=== PATIENT | female | born 1955 ===

== ENCOUNTER 2016-10-11 22:47 | Emergency (ER) | payer MEDICAID ==
[2016-10-11 22:47] VITALS: BMI 24.1
[2016-10-11 23:02] VITALS: BP 141/85; PULSE 94; RESP 16; TEMP 98; O2SAT 99
--- NOTE | 2016-10-11 23:58 | ED PDOC ---
HPI: Skin/Bite Injury Time Seen by Provider: 10/11/16 23:43 Chief Complaint (Nursing): Abnormal Skin Integrity Chief Complaint (Provider): painful lump upper back History Per: Patient History/Exam Limitations: no limitations Onset/Duration Of Symptoms: Days (3) Quality Of Symptoms: Painful Additional History Per: Patient Additional Complaint(s): 61 y/o female history of diabetes, hypertension, hyperlipidemia, depression presents with painful lump to right upper back x 3 days. Patient she has had "pimple" to the area x 1 month; was prescribed antibiotic cream by PMD. Patient states when she gets nervous she picks at her skin, admits to picking at pimple since then, yesterday noted pain and swelling to area. Denies fever, nausea/vomiting, drainage. Past Medical History Reviewed: Historical Data, Nursing Documentation, Vital Signs Vital Signs: Last Vital Signs Temp 98.0 F 10/11/16 22:59 Pulse 94 H 10/11/16 22:59 Resp 16 10/11/16 22:59 BP 141/85 10/11/16 22:59 Pulse Ox 99 10/12/16 00:11 - Medical History PMH: Anxiety, Asthma, Depression, Diabetes, Fractures (WRIST RT./CASTED), Gastritis, Gall Bladder Disease, HTN, Hypercholesterolemia, Migraine (IN PAST), Pneumonia (LONG AGO) Denies: Chronic Kidney Disease - Surgical History Surgical History: Cholecystectomy, Endoscopy - Family History Family History: States: Unknown Family Hx - Immunization History Hx Tetanus Toxoid Vaccination: No Hx Influenza Vaccination: No Hx Pneumococcal Vaccination: No - Home Medications Home Medications: Ambulatory Orders Medication Instructions Recorded Alprazolam [Xanax] 1 mg PO HS PRN 01/11/15 Aripiprazole [Abilify] 15 mg PO HS 01/11/15 Budesonide/Formoterol Fumarate 2 puff IH TID PRN 01/11/15 [Symbicort 80-4.5 Mcg Inhaler] Cholecalciferol (Vitamin D3) 1,000 unit PO DAILY 01/11/15 [Vitamin D3] DiphenhydrAMINE [Benadryl] 50 mg PO Q6H PRN 01/11/15 Glimepiride [Amaryl] 4 mg PO BID 01/11/15 Insulin Glargine,Hum.rec.anlog 70 unit SC HS 01/11/15 [Lantus] Pantoprazole Sodium [Protonix] 40 mg PO DAILY 01/11/15 Zolpidem Tartrate [Ambien] 10 mg PO HS 01/11/15 oxyCODONE [oxyCODONE Immediate 20 mg PO TID PRN 01/11/15 Release Tab] Insulin Aspart, Recombinant 30 unit SC TID 03/14/15 [Novolog] Albuterol 0.5% [Albuterol 0.5% 1 dose NEB Q6H PRN 05/02/16 Inhal Trina (2.5 mg/0.5 ml) UD] Albuterol HFA [Ventolin HFA 90 2 puff INH PRN PRN 05/02/16 mcg/actuation (8 g)] Cyanocobalamin [Vitamin B12 1000 1,000 mcg IM Q30D 05/02/16 mcg/ml Inj] Clindamycin [Cleocin] 300 mg PO QID #39 cap 10/12/16 Ibuprofen [Motrin Tab] 1 tab PO Q6 PRN #20 tab 10/12/16 - Allergies Allergies/Adverse Reactions: Allergies Allergy/AdvReac Type Severity Reaction Status Date / Time insulin lispro [From Humalog] Allergy Intermediate RASH Verified 05/02/16 10:41 Review of Systems ROS Statement: Except As Marked, All Systems Reviewed And Found Negative Musculoskeletal: Positive for: Back Pain (right upper) Physical Exam - Reviewed Nursing Documentation Reviewed: Yes Vital Signs Reviewed: Yes - Physical Exam Appears: Positive for: Well, Non-toxic, No Acute Distress Head Exam: Positive for: ATRAUMATIC, NORMAL INSPECTION, NORMOCEPHALIC Skin: Positive for: Rash ([id number] nonfluctuant mass noted right upper back/neck with central prurulent lesion; mild flucutance surrounding lesion. Tender to touch. No active drainage, surrounding erythema) Eye Exam: Positive for: Normal appearance Cardiovascular/Chest: Positive for: Regular Rate, Rhythm Respiratory: Positive for: Normal Breath Sounds Extremity: Positive for: Normal ROM Neurologic/Psych: Positive for: Alert, Oriented - ECG O2 Sat by Pulse Oximetry: 99 - Progress ED Course And Treament: percocet po, ibuprofen PO Verbal consent given by patient for I&D. Area cleaned with alcohol prep pad, anesthesized with 1% lidocaine. Incision made using #11 blade over pustule with + prurulent drainage (culture obtained) Wound packed, bandaged. Family educated on wound care, warm compresses, follow up 48 hours for packing removal. Rx clindamycin (dose given in ED), ibuprofen provided. Return to ED for fever, spreading redness, or other concerning symptoms. Disposition - Clinical Impression Clinical Impression: Abscess - Patient ED Disposition Is Patient to be Admitted: No Counseled Patient/Family Regarding: Diagnosis, Need For Followup, Rx Given - Disposition Disposition: Routine/Home Disposition Time: 00:48 Condition: IMPROVED Additional Instructions: Follow up in 48 hours for wound check. Take medication as directed. Apply warm compresses 3-5times daily. Return to ED sooner for fever, spreading redness, or other concerning symptoms. Prescriptions: Clindamycin [Cleocin] 300 mg PO QID #39 cap Ibuprofen [Motrin Tab] 1 tab PO Q6 PRN #20 tab PRN Reason: Pain, Moderate (4-7) Instructions: Abscess Incision and Drainage (ED) Print Language: GREENLANDIC
[2016-10-12] MEDS ORDERED: Oxycodone/Acetaminophen 5/325 mg Tab ONE (00:02)
[2016-10-12] MEDS ORDERED: Lidocaine 1% Inj (20ml) IJ STA (00:03)
[2016-10-12] MEDS ORDERED: Oxycodone/Acetaminophen 5/325 mg Tab PO ONE (00:04)
[2016-10-12] MEDS ORDERED: Lidocaine 1% Inj (20ml) ONE (00:06)
== END 2016-10-12 01:08 | disposition home or self-care (01) ==
LOC: EDBD → H.ER 22:47
DX: L02.91 Cutaneous abscess, unspecified (principal); E11.9 Type 2 diabetes mellitus without complications; E78.00 Pure hypercholesterolemia, unspecified; I10 Essential (primary) hypertension; F41.9 Anxiety disorder, unspecified; J45.909 Unspecified asthma, uncomplicated; Z79.4 Long term (current) use of insulin

== ENCOUNTER 2016-10-14 10:33 | Emergency (ER) | payer MEDICAID ==
[2016-10-14 10:36] VITALS: BP 141/72; PULSE 89; RESP 18; TEMP 97.6; O2SAT 97; BMI 23.8
--- NOTE | 2016-10-14 11:03 | ED PDOC ---
HPI: Wound Care - HPI Time Seen by Provider: 10/14/16 10:54 Chief Complaint (Nursing): Wound Check Chief Complaint (Provider): Wound Check History Per: Patient Exam Limitations: no limitations Onset/Duration Of Symptoms: Days Current Symptoms Are (Timing): Better Location Of Injury: Right: Back Quality Of Symptoms: Itching Severity: Mild Additional Complaint(s): Patient is a 61 year old female who presents to ED for wound check. Patient was evaluated in ED on 10/11 for an abscess, had an I&D performed and packing placed , instructed to return for follow up. Patient states she is taking her prescribed Clindamycin and Motrin, denies fever, significant pain or drainage. Past Medical History Reviewed: Historical Data, Nursing Documentation, Vital Signs Vital Signs: Last Vital Signs Temp 97.6 F 10/14/16 10:36 Pulse 89 10/14/16 10:36 Resp 18 10/14/16 10:36 BP 141/72 10/14/16 10:36 Pulse Ox 97 10/14/16 10:36 - Medical History PMH: Anxiety, Asthma, Depression, Diabetes, Fractures (WRIST RT./CASTED), Gastritis, Gall Bladder Disease, HTN, Hypercholesterolemia, Migraine (IN PAST), Pneumonia (LONG AGO) Denies: Chronic Kidney Disease - Surgical History Surgical History: Cholecystectomy, Endoscopy - Family History Family History: States: Unknown Family Hx - Living Arrangements Living Arrangements: With Family - Immunization History Hx Tetanus Toxoid Vaccination: No Hx Influenza Vaccination: No Hx Pneumococcal Vaccination: No - Home Medications Home Medications: Ambulatory Orders Medication Instructions Recorded Alprazolam [Xanax] 1 mg PO HS PRN 01/11/15 Aripiprazole [Abilify] 15 mg PO HS 01/11/15 Budesonide/Formoterol Fumarate 2 puff IH TID PRN 01/11/15 [Symbicort 80-4.5 Mcg Inhaler] Cholecalciferol (Vitamin D3) 1,000 unit PO DAILY 01/11/15 [Vitamin D3] DiphenhydrAMINE [Benadryl] 50 mg PO Q6H PRN 01/11/15 Glimepiride [Amaryl] 4 mg PO BID 01/11/15 Insulin Glargine,Hum.rec.anlog 70 unit SC HS 01/11/15 [Lantus] Pantoprazole Sodium [Protonix] 40 mg PO DAILY 01/11/15 Zolpidem Tartrate [Ambien] 10 mg PO HS 01/11/15 oxyCODONE [oxyCODONE Immediate 20 mg PO TID PRN 01/11/15 Release Tab] Insulin Aspart, Recombinant 30 unit SC TID 03/14/15 [Novolog] Albuterol 0.5% [Albuterol 0.5% 1 dose NEB Q6H PRN 05/02/16 Inhal Trina (2.5 mg/0.5 ml) UD] Albuterol HFA [Ventolin HFA 90 2 puff INH PRN PRN 05/02/16 mcg/actuation (8 g)] Cyanocobalamin [Vitamin B12 1000 1,000 mcg IM Q30D 05/02/16 mcg/ml Inj] Clindamycin [Cleocin] 300 mg PO QID #39 cap 10/12/16 Ibuprofen [Motrin Tab] 1 tab PO Q6 PRN #20 tab 10/12/16 - Allergies Allergies/Adverse Reactions: Allergies Allergy/AdvReac Type Severity Reaction Status Date / Time insulin lispro [From Humalog] Allergy Intermediate RASH Verified 05/02/16 10:41 Review of Systems Constitutional: Negative for: Fever, Chills Gastrointestinal: Negative for: Nausea, Vomiting Musculoskeletal: Negative for: Neck Pain, Back Pain Skin: Positive for: Other (Healing wound right upper back). Negative for: Rash Physical Exam - Reviewed Nursing Documentation Reviewed: Yes Vital Signs Reviewed: Yes - Physical Exam Appears: Positive for: Non-toxic, No Acute Distress Skin: Positive for: Normal Color, Warm Eye Exam: Positive for: Normal appearance Neck: Positive for: Normal Back: Positive for: Normal Inspection, Other (open owund to right upper back (- ) erythema (-) tenderness (-) drainage) Extremity: Positive for: Normal ROM Neurologic/Psych: Positive for: Alert, Oriented - ECG O2 Sat by Pulse Oximetry: 97 (RA) Pulse Ox Interpretation: Normal Medical Decision Making Medical Decision Making: Time: 1100 Initial impression: Wound check Initial plan: Packing removed, wound is clean and dry. Instructed patient to continue taking antibiotics. Scribe Attestation: Documented by Krystle Cervantes acting as a scribe for Natanael Rogel MD MD Scribe Attestation: All medical record entries made by the Scribe were at my direction and personally dictated by me. I have reviewed the chart and agree that the record accurately reflects my personal performance of the history, physical exam, medical decision making, and the department course for this patient. I have also personally directed, reviewed, and agree with the discharge instructions and disposition. Disposition - Clinical Impression Clinical Impression: Encounter for wound re-check, Abscess packing removal - Patient ED Disposition Is Patient to be Admitted: No Doctor Will See Patient In The: Office Counseled Patient/Family Regarding: Studies Performed, Diagnosis, Need For Followup - Disposition Referrals: [facility] [Outside] Disposition: Routine/Home Disposition Time: 11:12 Condition: GOOD Additional Instructions: Follow up with your PCP in 3 days. You do not have to return for wound recheck unless there is worsening. Finish antibiotics as instructed. Instructions: Abscess Follow-up (ED)
== END 2016-10-14 11:15 | disposition home or self-care (01) ==
LOC: EDBD → H.ER 10:33
DX: Z48.00 Encounter for change or removal of nonsurgical wound dressing (principal); E11.9 Type 2 diabetes mellitus without complications; E78.00 Pure hypercholesterolemia, unspecified; F41.9 Anxiety disorder, unspecified; I10 Essential (primary) hypertension; Z79.4 Long term (current) use of insulin

== ENCOUNTER 2017-07-15 09:12 | Emergency (ER) | payer MEDICAID ==
[2017-07-15 09:18] VITALS: BP 146/79; TEMP 98; O2SAT 98
[2017-07-15 09:19] VITALS: BMI 23.6
--- NOTE | 2017-07-15 09:33 | ED PDOC ---
HPI: Back Time Seen by Provider: 07/15/17 09:27 Chief Complaint (Nursing): Back Pain History Per: Patient Current Symptoms Are (Timing): Still Present Quality Of Discomfort: Aching Severity: Moderate Pain Scale Rating Of: 4 Previous Symptoms: Back Pain Associated Symptoms: None Exacerbating Factor(s): Movement Additional Complaint(s): Chronic right sided low back pain radiates to front of right thigh. Worse over past 2 days. No weakness or parasthesias. No trauma or heavy lifting. Has appt with pain specialist in 2 weeks. Past Medical History Vital Signs: Last Vital Signs Temp 98 F 07/15/17 09:18 Pulse 106 H 07/15/17 09:18 Resp BP 146/79 07/15/17 09:18 Pulse Ox 98 07/15/17 09:18 - Medical History PMH: Anxiety, Asthma, Back Problems, Depression, Diabetes, Fractures (WRIST RT./ CASTED), Gastritis, Gall Bladder Disease, HTN, Hypercholesterolemia, Migraine ( IN PAST), Pneumonia (LONG AGO) Denies: Chronic Kidney Disease - Surgical History Surgical History: Cholecystectomy, Endoscopy - Family History Family History: States: Unknown Family Hx - Immunization History Hx Tetanus Toxoid Vaccination: No Hx Influenza Vaccination: No Hx Pneumococcal Vaccination: No - Home Medications Home Medications: Ambulatory Orders Medication Instructions Recorded Alprazolam [Xanax] 1 mg PO HS PRN 01/11/15 Aripiprazole [Abilify] 15 mg PO HS 01/11/15 Budesonide/Formoterol Fumarate 2 puff IH TID PRN 01/11/15 [Symbicort 80-4.5 Mcg Inhaler] Cholecalciferol (Vitamin D3) 1,000 unit PO DAILY 01/11/15 [Vitamin D3] DiphenhydrAMINE [Benadryl] 50 mg PO Q6H PRN 01/11/15 Glimepiride [Amaryl] 4 mg PO BID 01/11/15 Insulin Glargine,Hum.rec.anlog 70 unit SC HS 01/11/15 [Lantus] Pantoprazole Sodium [Protonix] 40 mg PO DAILY 01/11/15 Zolpidem Tartrate [Ambien] 10 mg PO HS 01/11/15 oxyCODONE [oxyCODONE Immediate 20 mg PO TID PRN 07/13/15 Release Tab] Insulin Aspart, Recombinant 30 unit SC TID 03/14/15 [Novolog] Albuterol 0.5% [Albuterol 0.5% 1 dose NEB Q6H PRN 05/02/16 Inhal Trina (2.5 mg/0.5 ml) UD] Albuterol HFA [Ventolin HFA 90 2 puff INH PRN PRN 05/02/16 mcg/actuation (8 g)] Cyanocobalamin [Vitamin B12 1000 1,000 mcg IM Q30D 05/02/16 mcg/ml Inj] Clindamycin [Cleocin] 300 mg PO QID #39 cap 10/12/16 Ibuprofen [Motrin Tab] 1 tab PO Q6 PRN #20 tab 10/12/16 Cyclobenzaprine [Cyclobenzaprine 10 mg PO TID #10 tab 07/15/17 HCl] Naproxen [Naprosyn] 500 mg PO Q12H #20 tab 07/15/17 - Allergies Allergies/Adverse Reactions: Allergies Allergy/AdvReac Type Severity Reaction Status Date / Time insulin lispro [From Humalog] Allergy Intermediate RASH Verified 07/15/17 09:48 Review of Systems Constitutional: Negative for: Fever Genitourinary Female: Negative for: Dysuria, Frequency, Incontinence Musculoskeletal: Positive for: Back Pain Neurological: Negative for: Weakness, Numbness Physical Exam - Physical Exam Appears: Positive for: Non-toxic, Uncomfortable Skin: Positive for: Normal Color, Warm, DRY Back: Positive for: Normal Inspection, Vertebral Tenderness, Other (Right paralumbar spasm and tenderness) Neurologic/Psych: Positive for: Alert, Oriented. Negative for: Motor/Sensory Deficits - ECG O2 Sat by Pulse Oximetry: 98 Disposition - Clinical Impression Clinical Impression: Chronic back pain - Patient ED Disposition Is Patient to be Admitted: No Counseled Patient/Family Regarding: Diagnosis, Need For Followup, Rx Given - Disposition Referrals: Leilani Whitfield MD [Staff Provider] - Disposition: Routine/Home Disposition Time: 11:10 Condition: FAIR Prescriptions: Cyclobenzaprine [Cyclobenzaprine HCl] 10 mg PO TID #10 tab Naproxen [Naprosyn] 500 mg PO Q12H #20 tab Instructions: Chronic Back Pain (ED) Forms: [employer] (Romansh)
[2017-07-15 10:26] VITALS: RESP 18
[2017-07-15 11:21] VITALS: PULSE 91
== END 2017-07-15 11:20 | disposition home or self-care (01) ==
LOC: H.ER 09:12
DX: G89.29 Other chronic pain (principal); E11.9 Type 2 diabetes mellitus without complications; Z79.4 Long term (current) use of insulin
CPT/HCPCS: 82948; 96372; 99282; J1885

== ENCOUNTER 2018-07-15 18:50 | Emergency (ER) | payer MEDICAID ==
[2018-07-15 18:51] VITALS: BMI 25.2
[2018-07-15] MEDS ORDERED: Iohexol 240 (50 ml) PO ONE (19:28)
[2018-07-15] MEDS ORDERED: Sodium Chloride 0.9% 1,000 ML IV STA (19:28)
[2018-07-15] MEDS ORDERED: Iohexol 240 (50 ml) ONE (19:40)
[2018-07-15] MEDS ORDERED: Morphine 4 MG/ML VIAL IV ONE ×2 (19:49→22:00)
[2018-07-15] MEDS ORDERED: Morphine 4 MG/ML VIAL ONE ×2 (20:02→21:45)
--- NOTE | 2018-07-15 20:12 | ED PDOC ---
HPI: Abdomen Time Seen by Provider: 07/15/18 19:17 Chief Complaint (Nursing): Abdominal Pain Chief Complaint (Provider): Abdominal Pain History Per: Patient History/Exam Limitations: no limitations Onset/Duration Of Symptoms: Days Current Symptoms Are (Timing): Still Present Additional Complaint(s): 62 y/o female with a PMHx of COPD and Anxiety presents to the ED for evaluation of right sided flank pain, onset three days ago. Patient describes flank pain as constant and radiates to the RLQ. Patient reports pain is associated with nausea and generalized weakness. Otherwise, patient denies vomiting, diarrhea, fever, rashes and urinary symptoms. PMD: Elkin Gentile Past Medical History Reviewed: Historical Data, Nursing Documentation, Vital Signs Vital Signs: Last Vital Signs Temp 97.6 F 07/15/18 18:57 Pulse 88 07/15/18 20:01 Resp 20 07/15/18 20:01 BP 143/75 07/15/18 20:01 Pulse Ox 99 07/15/18 18:57 - Medical History PMH: Anxiety, Asthma, Back Problems, COPD, Depression, Diabetes, Fractures (WRIST RT./CASTED), Gastritis, Gall Bladder Disease, HTN, Hypercholesterolemia, Migraine (IN PAST), Pneumonia (LONG AGO) Denies: Chronic Kidney Disease - Surgical History Surgical History: Cholecystectomy, Endoscopy Other surgeries: Tubul Ligation - Family History Family History: States: Unknown Family Hx - Immunization History Hx Tetanus Toxoid Vaccination: Yes Hx Influenza Vaccination: No Hx Pneumococcal Vaccination: No - Home Medications Home Medications: Ambulatory Orders Medication Instructions Recorded RX: Alprazolam [Xanax] 1 mg PO BID PRN 01/11/15 RX: Aripiprazole [Abilify] 15 mg PO HS 01/11/15 RX: Insulin Glargine,Hum.rec.anlog 50 unit SC AMHS 01/11/15 [Lantus] RX: Zolpidem Tartrate [Ambien] 10 mg PO HS 01/11/15 Glimepiride [amaRYL] 4 mg PO DAILY 07/19/17 Insulin Aspart, Recombinant 15 unit SC TID 07/19/17 [Novolog] Ibuprofen [Motrin] 600 mg PO TID #21 tab 02/26/18 RX: Clindamycin [Cleocin] 300 mg PO TID #30 cap 08/28/18 Nitrofurantoin Macrocrystals 100 mg PO BID #14 cap 07/15/18 [Macrobid] Ondansetron [Zofran] 4 mg PO Q6H PRN #5 tab 07/15/18 - Allergies Allergies/Adverse Reactions: Allergies Allergy/AdvReac Type Severity Reaction Status Date / Time insulin lispro [From Humalog] Allergy Intermediate RASH Verified 02/26/18 12:05 Review of Systems ROS Statement: Except As Marked, All Systems Reviewed And Found Negative Constitutional: Positive for: Weakness. Negative for: Fever Gastrointestinal: Positive for: Nausea, Abdominal Pain. Negative for: Vomiting, Diarrhea Genitourinary Female: Negative for: Dysuria, Frequency, Hematuria Musculoskeletal: Positive for: Back Pain (right flank) Skin: Negative for: Rash Physical Exam - Reviewed Nursing Documentation Reviewed: Yes Vital Signs Reviewed: Yes - Physical Exam Appears: Positive for: No Acute Distress Head Exam: Positive for: ATRAUMATIC, NORMOCEPHALIC Skin: Positive for: Normal Color, Warm, Dry. Negative for: Rash Eye Exam: Positive for: Normal appearance, EOMI, PERRL Neck: Positive for: Normal, Painless ROM, Supple Cardiovascular/Chest: Positive for: Regular Rate, Rhythm. Negative for: Murmur Respiratory: Positive for: Normal Breath Sounds. Negative for: Respiratory Distress Gastrointestinal/Abdominal: Positive for: Tenderness (mild right sided tenderness) Extremity: Positive for: Normal ROM. Negative for: Pedal Edema, Deformity Neurologic/Psych: Positive for: Alert, Oriented. Negative for: Motor/Sensory Deficits - Laboratory Results Result Diagrams: 07/15/18 19:50 07/15/18 19:50 - ECG ECG Rhythm: Positive for: Left Bundle Branch Block (history of it) O2 Sat by Pulse Oximetry: 99 (RA) Pulse Ox Interpretation: Normal Medical Decision Making Medical Decision Making: Time: 1927 Rule out appendicitis and small bowel obstruction Plan: -- CT Abd/Pelvis PO & IV Contrast -- EKG -- CMP -- Lipase -- CBC with Differentials -- Morphine 2 mg IV -- Sodium Chloride 0.9% IV 999 mls/hr -- Iohexol 50 ml PO -- Pepcid 20 mg IVP -- Zofran Inj 4 mg IV -- Urine Culture -- Urinalysis 23:19 CT AbdomenFINDINGS: LUNG BASES: The lung bases appear clear. No pleural effusions are seen. LIVER: Unremarkable. GALLBLADDER AND BILE DUCTS: S/p cholecystectomy. Surgical clips are noted in the gallbladder fossa. PANCREAS: Unremarkable. SPLEEN: Unremarkable. ADRENAL GLANDS: Unremarkable. KIDNEYS, URETERS, AND BLADDER: The kidneys appear within normal limits. There is no hydronephrosis or hydroureter. No urinary calculi are seen. STOMACH AND BOWEL: There is diffuse diverticulosis noted involving descending and sigmoid colon. No evidence of acute diverticulitis. Note is made of distended thick walled stomach and thick walled small bowel compatible with gastroenteritis. Consider consultation with GI service. APPENDIX: No evidence of acute appendicitis on CT examination. PERITONEUM: No free fluid. No free air. LYMPH NODES: No lymphadenopathy is evident. REPRODUCTIVE: Unremarkable as visualized. VASCULATURE: No evidence of abdominal aortic aneurysm. BONES: No aggressive appearing osseous lesion. No acute osseous pathology evident. IMPRESSION: 1. S/p cholecystectomy. 2. There is diffuse diverticulosis noted involving descending and sigmoid colon. No evidence of acute diverticulitis. 3. Gastroenteritis. Consider consultation with GI service. 23:[address] and labs reviewed. Patient is hyperglycemic will give insulin. Patien's anion gap is 10. CT demonstrates gastroenteritis will give Zofran. CT also indicates diverticulosis and borderline UTI. Patient made aware of findings. At this time patient is tolerating PO. Will discharge home. Scribe Attestation: Documented by Elver Flanagan, acting as a scribe for Rupa Rodriguez MD. Provider Scribe Attestation: All medical record entries made by the Scribe were at my direction and personally dictated by me. I have reviewed the chart and agree that the record accurately reflects my personal performance of the history, physical exam, medical decision making, and the department course for this patient. I have also personally directed, reviewed, and agree with the discharge instructions and disposition. Disposition - Clinical Impression Clinical Impression: Hyperglycemia, Abdominal pain, UTI (urinary tract infection) - Patient ED Disposition Is Patient to be Admitted: No Counseled Patient/Family Regarding: Studies Performed, Diagnosis, Need For Followup - Disposition Disposition: Routine/Home Disposition Time: 23:44 Condition: IMPROVED Additional Instructions: follow up with your primary doctor DR Gentile in 1-2 days return to the ED with any worsening or concerning symptoms Prescriptions: Nitrofurantoin Macrocrystals [Macrobid] 100 mg PO BID #14 cap Ondansetron [Zofran] 4 mg PO Q6H PRN #5 tab PRN Reason: Nausea/Vomiting Instructions: Urinary Tract Infections in Adults, Viral Gastroenteritis, High Fiber Diet, Diverticulosis (DC) Forms: [employer] (British), [employer] (Japanese) Print Language: MARTINIQUAIS
[2018-07-15 20:19] LABS: ALB/GLOB RATIO 1.5 (1.0-2.1); ALBUMIN 4.5 g/dL (3.5-5.0); ALT/SGPT 38 U/L (9-52); AST/SGOT 28 U/L (14-36); BLOOD UREA NITROGEN 20 mg/dl (7-17); GFR NON-AFRICAN AMERICAN > 60; LIPASE 94 U/L (23-300)
[2018-07-15 20:21] LABS: BASO % 0.5 % (0.0-2.0); EOS # 0.1 K/uL (0.0-0.7); EOS % 2.5 % (0.0-4.0); HEMOGLOBIN 13.8 g/dL (12.0-16.0); LYMPH # 1.6 K/uL (1.0-4.3); LYMPH % 27.3 % (20.0-40.0); MEAN CORPUSCULAR HEMOGLOBIN 29.1 pg (27.0-31.0); MEAN CORPUSCULAR HGB CONC 33.4 g/dL (33.0-37.0); MEAN PLATELET VOLUME 7.5 fl (7.2-11.7); MONO # 0.5 K/uL (0.0-0.8); MONO % 8.1 % (0.0-10.0); NEUT # 3.6 K/uL (1.8-7.0); NEUT % 61.6 % (50.0-75.0); RBC 4.76 Mil/uL (3.80-5.20); RED CELL DISTRIBUTION WIDTH 13.1 % (11.5-14.5); WHITE BLOOD COUNT 5.9 K/uL (4.8-10.8)
[2018-07-15 20:42] LABS: SQUAMOUS EPITHIAL < 1 /hpf (0-5); URINE BACTERIA RARE (<OCC); URINE BILIRUBIN NEGATIVE (NEGATIVE); URINE BLOOD NEGATIVE (NEGATIVE); URINE CLARITY CLEAR (Clear); URINE COLOR STRAW (YELLOW); URINE GLUCOSE (UA) >=500 mg/dL (NEGATIVE); URINE LEUKOCYTE ESTERASE SMALL Leu/uL (Negative); URINE PROTEIN NEGATIVE (NEGATIVE); URINE UROBILINOGEN 0.2-1.0 mg/dL (0.2-1.0)
[2018-07-15] MEDS ORDERED: Sodium Chloride 0.9% 50 ML IV ONE (21:16)
[2018-07-15] MEDS ORDERED: Iohexol 300 100 ML IJ ONE (21:16)
[2018-07-15] MEDS ORDERED: Insulin Regular 100 units/ml SC STA (23:33)
[2018-07-15] MEDS ORDERED: Insulin Regular 100 units/ml ONE (23:50)
[2018-07-16 00:30] VITALS: BP 136/84; PULSE 84; RESP 18; TEMP 98.3
--- NOTE | 2018-07-16 11:16 | CT ---
Date of service: 07/15/2018 PROCEDURE: CT Abdomen and Pelvis with contrast HISTORY: abd pain COMPARISON: 11/02/2016 TECHNIQUE: Contrast dose: 90 mL Omnipaque 300 Radiation dose: Total exam DLP = 243.53 mGy-cm. This CT exam was performed using one or more of the following dose reduction techniques: Automated exposure control, adjustment of the mA and/or kV according to patient size, and/or use of iterative reconstruction technique. FINDINGS: LOWER THORAX: Unremarkable. LIVER: Unremarkable. No gross lesion or ductal dilatation. GALLBLADDER AND BILE DUCTS: Status post cholecystectomy PANCREAS: Unremarkable. No gross lesion or ductal dilatation. SPLEEN: Unremarkable. ADRENALS: Unremarkable. No mass. KIDNEYS AND URETERS: Unremarkable. No hydronephrosis. No solid mass. VASCULATURE: Unremarkable. No aortic aneurysm. There is mild atherosclerotic calcification of the abdominal aorta. BOWEL: No bowel obstruction. Sigmoid diverticulosis without evidence of diverticulitis. Mild circumferential mural thickening of the 2nd and 3rd duodenum consistent with nonspecific duodenitis. No evidence of enteritis or colitis elsewhere. APPENDIX: Normal appendix. PERITONEUM: Unremarkable. No free fluid. No free air. LYMPH NODES: Unremarkable. No enlarged lymph nodes. BLADDER: Unremarkable. REPRODUCTIVE: Normal uterus BONES: No acute fracture. OTHER FINDINGS: None. IMPRESSION: Sigmoid diverticulosis without evidence of diverticulitis. Status post cholecystectomy. Mild nonspecific duodenitis. Otherwise unremarkable examination. The preliminary findings for this examination were reported by [facility] at 11:19 p.m. on 07/15/2018. There is concurrence of this report with the preliminary findings.
--- NOTE | 2018-07-16 18:49 | CARD ---
APPROVED REPORT Date of service: 07/15/2018 EKG Measurement Heart [id number] <Conclusion> Normal sinus rhythm Left bundle branch block Abnormal ECG
[2018-07-17 04:07] VITALS: O2SAT 99
== END 2018-07-16 00:06 | disposition home or self-care (01) ==
LOC: H.ER 18:50
DX: E11.65 Type 2 diabetes mellitus with hyperglycemia (principal); R10.9 Unspecified abdominal pain; N39.0 Urinary tract infection, site not specified; J44.9 Chronic obstructive pulmonary disease, unspecified; Z90.49 Acquired absence of other specified parts of digestive tract; Z79.4 Long term (current) use of insulin; Z86.59 Personal history of other mental and behavioral disorders
CPT/HCPCS: 74177; 80053; 81003; 83690; 85025; 87086; 93005; 96372; 96374; 99284; J2270; J2405; J7030; Q9966; Q9967